=== PATIENT | female | born 1990 | race Caucasian/White ===

== ENCOUNTER 2018-05-22 12:10 | Emergency (ER) | payer SELFPAY ==
[~2018-05-22] VITALS: Ht 182.9 cm; Wt 68.0 kg
[~2018-05-22 12:10] MED LIST: NKM
[2018-05-22 12:30] VITALS: BP 129/75
--- NOTE | 2018-05-22 13:09 | Emergency Room Report ---
History of Present Illness General Chief Complaint: Abdominal Pain Source: Patient Present Illness HPI This patient c/o recurrence of extreme pain at the urethra. She has a urologist and has presumptive dx of interstitial cystitis. It frequently flares up and causes extreme burning pain at urethra. Multiple repeat UA are negative. No fever, no vomiting, no trauma. No other issues. Allergies: Coded Allergies: PENICILLINS (Verified Allergy, Unknown, 05/22/18) Patient History Last Menstrual Period: 04/2018 Now: No Review of Systems Constitutional: Reports: no symptoms Eye: Reports: no symptoms ENT: Reports: no symptoms Respiratory: Reports: no symptoms Cardiovascular: Reports: no symptoms Gastrointestinal: Reports: no symptoms Genitourinary: Reports: no symptoms Musculoskeletal: Reports: no symptoms Skin: Reports: no symptoms Psychiatric: Reports: no symptoms Neurological: Reports: no symptoms Endocrine: Reports: no symptoms Hematologic/Lymphatic: Reports: no symptoms Allergic: Reports: no symptoms Physical Exam Vital Signs Date Time Temp Pulse Resp B/P (MAP) Pulse Ox O2 Delivery O2 Flow Rate FiO2 05/22/18 12:01 97.7 76 16 129/75 99 Room Air 97.7 Sp02 EP Interpretation: reviewed, normal General Appearance: normal inspection, well appearing, no apparent distress, alert, GCS 15, non-toxic Head: normocephalic, atraumatic Eyes: bilateral eye normal inspection, bilateral eye PERRL, bilateral eye EOMI ENT: normal ENT inspection, hearing grossly normal, normal pharynx, no angioedema, normal voice, moist mucus membranes Neck: normal inspection, full range of motion, supple, no meningismus, no bony tend Respiratory: normal inspection, lungs clear, normal breath sounds, no rhonchi, no respiratory distress, no retraction, no accessory muscle use, no wheezing Cardiovascular #1: normal inspection, regular rate, rhythm, no edema Gastrointestinal: normal inspection, normal bowel sounds, non tender, soft, no mass, non-distended Musculoskeletal: gait/station normal, normal range of motion Neurologic: normal inspection, alert, oriented x3, responsive, motor strength/ tone normal Psychiatric: normal inspection, judgement/insight normal, memory normal Suicide Risk Assessment: Suicidal Ideation: No Had intent to initiate attempt: No Pt's plan for suicide attempt: No Has means to complete attempt: No Skin: normal inspection, normal color, no rash, warm/dry Medical Decision Making Diagnostic Impression: Primary Impression: Cystitis ER Course Pt. does not want another UA. Her symptoms had improved substantially prior to my seeing her. Still I offered IM Toradol and she wanted. I advised to go back to urologist, confirm dx and perhaps pain management. NSAIDs. Last Vital Signs Date Time Temp Pulse Resp B/P (MAP) Pulse Ox O2 Delivery O2 Flow Rate FiO2 05/22/18 12:30 97.7 76 16 129/75 99 Room Air 97.7 Disposition: HOME, SELF-CARE Condition: Stable Patient Instructions: Urethritis, Adult Greg Rojo M.D. May 22, 2018 13:09
[2018-05-22] MEDS ORDERED: Ketorolac 30mg Inj IM ONE (13:15)
[2018-05-22 13:32] VITALS: BP 120/80
== END 2018-05-22 13:32 | disposition home or self-care (01) ==
LOC: EDBD 12:10 → EMR 13:25
DX: N30.90 Cystitis, unspecified without hematuria (principal); Z88.0 Allergy status to penicillin
CPT/HCPCS: 96372; 99283; J1885

== ENCOUNTER 2019-01-24 00:24 | Emergency (ER) | payer BC ==
[~2019-01-24] VITALS: Ht 182.9 cm; Wt 61.2 kg
[2019-01-24 00:44] VITALS: BP 117/65
--- NOTE | 2019-01-24 00:44 | NUR ---
ED Nurse Note: Pt arrived ED from home, c/o right forearm was injuried by glasses today, 04/21. Pt is A/O X 4, Vital signs stable at this time, waitng for orders.
[2019-01-24] MEDS ORDERED: Lidocaine 1% 10mg/ml/Epi 0.005mg/ml 30ml vial INJ ONE (00:45)
--- NOTE | 2019-01-24 00:58 | Emergency Room Report ---
History of Present Illness General Chief Complaint: Laceration Source: Patient Present Illness HPI Patient is a 28-year-old female presented after increased pain to her right lower forearm. Patient reports having a laceration after closing a window. She states that she is unsure when her last tetanus vaccine was. She denies any other locations of pain. She reports having several lacerations to her right hand and right forearm. She denies other locations of pain. She states glass on the window broke. She denies any foreign body sensation. She denies any change in sensation to her hand or other locations of pain. Allergies: Coded Allergies: PENICILLINS (Verified Allergy, Unknown, 05/22/18) Patient History Past Medical History: see triage record Last Menstrual Period: Dec 31 2018 Now: No Reviewed Nursing Documentation: PMH: Agreed; PSxH: Agreed Review of Systems All Other Systems: negative except mentioned in HPI Physical Exam Vital Signs Date Time Temp Pulse Resp B/P (MAP) Pulse Ox O2 Delivery O2 Flow Rate FiO2 01/24/19 00:34 98.2 62 18 119/69 98 Room Air General Appearance: well appearing, no apparent distress, alert, GCS 15 Head: normocephalic, atraumatic ENT: hearing grossly normal, normal voice Neck: full range of motion, supple Respiratory: no respiratory distress, speaking full sentences Musculoskeletal: no calf tenderness Neurologic: normal gait Psychiatric: mood/affect normal Skin: no rash Procedures Laceration/Wound Repair Laceration/Wound Repair : Consent: Emergent Wound Location: upper extremity Wound's Depth, Shape: superficial Wound Length (cm): 1 Betadine Prep?: Yes Anesthesia: Lidocaine w/ Epi Volume Anesthetic (ccs): 2 Wound Debrided: minimal Suture Size/Type: 5:0 Patient Tolerated: Well Complications: None Medical Decision Making Diagnostic Impression: Primary Impression: Laceration ER Course Patient presented for laceration. Differential diagnoses included foreign body , nerve injury, arterial injury among others. X-ray imaging of the right forearm 2 views interpreted by me showed normal bony alignment without evident fracture or foreign body. Last Vital Signs Date Time Temp Pulse Resp B/P (MAP) Pulse Ox O2 Delivery O2 Flow Rate FiO2 01/24/19 00:34 98.2 62 18 119/69 98 Room Air Status: improved Disposition: HOME, SELF-CARE Scripts Ibuprofen* (MOTRIN*) 600 Mg Tablet 600 MG ORAL Q8H PRN for For Pain, #30 TAB 0 Refills Prov: Dejon Sparks MD 01/24/19 Dejon Sparks MD Jan 24, 2019 00:58
[2019-01-24] MEDS ORDERED: IBUPROFEN600 MG ORAL (01:30)
[2019-01-24] MEDS ORDERED: Bacitracin Oint UD TOPIC ONE (01:30)
[2019-01-24] MEDS ORDERED: Tetanus/Diptheria/Pertussis Vaccine 0.5ml Syr IM ONE (01:45)
[2019-01-24 02:05] VITALS: BP 113/62
--- NOTE | 2019-01-24 02:05 | NUR ---
ER DISCHARGE NOTE: Patient is cleared to be discharged per Dr. Sparks. X-ray done, Suture done by , dressing applied. Tetunus given. Pt is aox4 on room air with stable vital signs. Pt was given dc and prescription instructions, pt was able to verbalize understanding, pt id band removed . pt is able to ambulate with steady gait. pt took all belongings.
--- NOTE | 2019-01-24 13:46 | Diagnostic Imaging Report ---
Clinical Indication:Pain due to laceration of right wrist Technique: 3 views of the right wrist Comparison: None Findings: Positioning on the lateral view is suboptimal. No definite acute fractures. No dislocations. Joint spaces are preserved. Impression: Negative
== END 2019-01-24 02:05 | disposition home or self-care (01) ==
LOC: EMR 01:53
DX: S51.811A Laceration without foreign body of right forearm, initial encounter (principal); W25.XXXA Contact with sharp glass, initial encounter; Y92.9 Unspecified place or not applicable; Z88.0 Allergy status to penicillin; Z23 Encounter for immunization
CPT/HCPCS: 90471; 90715; 99283